=== PATIENT | male | born 1975 | race Caucasian/White ===

== ENCOUNTER 2017-02-11 15:41 | Emergency (ER) | payer OTHER ==
[2017-02-11] MEDS ORDERED: NS 500 ML IV ONE (15:52)
--- NOTE | 2017-02-11 15:52 | EDPHY ---
H & P Stated Complaint: hx afib/flutter/ thinks he has been in afib since yesterday HPI/ROS: HPI CHIEF COMPLAINT: "I think I am in AFib" HISTORY OF PRESENT ILLNESS: This patient is a 41-year-old male, significant past medical history AFib, not on any anticoagulation and has intermittent AFib. Presents emergency room stating that he thinks he is in AFib with palpitations and lightheadedness. He denies chest pain. He tells me that yesterday he jumped in the pool felt acute onset of AFib. With lightheadedness palpitations. Has persisted. He did take metoprolol 25 mg and Propafenone. However this did not give him any relief. Past Medical History: AFib Past Surgical History: No recent surgery Social History: Denies daily use drugs alcohol tobacco products Family History: Noncontributory ROS REVIEW OF SYSTEMS: A comprehensive 10 point review of systems is otherwise negative aside from elements mentioned in the history of present illness. Exam Constitutional appears well nontoxic triage nursing summary reviewed, vital signs reviewed, awake/alert. Eyes normal conjunctivae and sclera, EOMI, PERRLA. HENT normal inspection, atraumatic, moist mucus membranes, no epistaxis, neck supple/ no meningismus, no raccoon eyes. Respiratory clear to auscultation bilaterally, normal breath sounds, no respiratory distress, no wheezing. Cardiovascular irregular, irregular rhythm, no murmur, no edema, distal pulses normal. Gastrointestinal soft, non-tender, no rebound, no guarding, normal bowel sounds, no distension, no pulsatile mass. Genitourinary no CVA tenderness. Musculoskeletal no midline vertebral tenderness, full range of motion, no calf swelling, no tenderness of extremities, no meningismus, good pulses, neurovascularly intact. Skin pink, warm, & dry, no rash, skin atraumatic. Neurologic awake, alert and oriented x 3, AAOx3, moves all 4 extremities equally, motor intact, sensory intact, CN II-XII intact, normal cerebellar, normal vision, normal speech. Psychiatric normal mood/affect. Heme/Lymph/Immune no lymphadenopathy. Differential Diagnosis: Includes but is not limited to in a particular order, AFib, a flutter, other cardiac arrhythmia, electrolyte disturbance Medical Decision Making: Plan for this patient IV establishment full night monitor, EKG, blood work, chest x-ray. Will consult Cardiology Re-evaluation: 1618: This time I did speak with Dr. Bhupinder Valdez with Cardiology [facility]. Recommends Eliquis 5 mg twice daily and 25 mg metoprolol twice daily. NPO at midnight. Plan for JULIA cardioversion tomorrow. He would like him to be NPO at midnight. Plan for patient comfort admitting for JULIA cardioversion tomorrow. I have discussed this with the patient. He is fine with this plan. He is agreeable for discharge. Eliquis 1st dose given here in the emergency room as well as metoprolol 25 mg. Does understand if he develops chest pain shortness of breath or very very fast heart rate or has a syncopal episode he needs return emergency room. Otherwise follow up with [facility] tomorrow. ED x-ray chest one view: Negative for acute cardiopulmonary disease. EKG interpretation by me on record in [email or web address] system. Impression time of EKG 1556, atrial fib rate of 105. Otherwise I do not appreciate acute ischemia. Troponin is negative. Patient's viral follow-up care plan. Understands return emergency room if there is any worsening symptoms questions concerns. He is hemodynamically stable. Heart rate stable. Blood pressure stable. Source: Patient - Personal History Current Tetanus/Diphtheria Vaccine: Yes - Medical/Surgical History Hx Asthma: No Hx Chronic Respiratory Disease: No Hx Diabetes: No Hx Cardiac Disease: Yes Hx Renal Disease: No Hx Cirrhosis: No Hx Alcoholism: No Hx HIV/AIDS: No Hx Splenectomy or Spleen Trauma: No Other PMH: medical atrial flutter/fibrillation with ablation. surgery Ablation - Social History Smoking Status: Never smoked Constitutional: Initial Vital Signs Temperature (C) 36.5 C 02/11/17 15:43 Heart Rate 94 02/11/17 15:43 Respiratory Rate 18 02/11/17 15:43 Blood Pressure 95/76 L 02/11/17 15:43 O2 Sat (%) 98 02/11/17 15:43 O2 Delivery Mode Room Air Allergies/Adverse Reactions: No Known Allergies Allergy (Verified 02/11/17 15:42) Home Medications: Medication Instructions Recorded Apixaban [Eliquis] 5 mg PO BID #60 tab 02/11/17 Aspirin 81mg (*) 02/11/17 Metoprolol Succinate 02/11/17 Metoprolol Tartrate [Lopressor 25 25 mg PO BID #60 tab 02/11/17 mg (*)] Medical Decision Making - Diagnostics Imaging Results: Imaging Impressions Chest X-Ray 02/11/17 15:52 Impression: 1. No acute pulmonary disease. 2. Consider chest two views when the patient's medical condition permits. - Data Points Laboratory Results: Laboratory Results 02/11/17 16:00 02/11/17 16:00 02/11/17 02/11/17 02/11/17 16:00 16:00 16:00 WBC 7.49 10^3/uL 10^3/uL (3.80-9.50) RBC 5.77 10^6/uL 10^6/uL (4.40-6.38) Hgb 18.4 g/dL H g/dL (13.7-17.5) Hct 53.4 % H % (40.0-51.0) MCV 92.5 fL fL (81.5-99.8) MCH 31.9 pg pg (27.9-34.1) MCHC 34.5 g/dL g/dL (32.4-36.7) RDW 12.9 % % (11.5-15.2) Plt Count 256 10^3/uL 10^3/uL (150-400) MPV 10.8 fL fL (8.7-11.7) Neut % (Auto) 56.9 % % (39.3-74.2) Lymph % (Auto) 32.7 % % (15.0-45.0) [place] % (Auto) 8.4 % % (4.5-13.0) Eos % (Auto) 1.2 % % (0.6-7.6) Baso % (Auto) 0.5 % % (0.3-1.7) Nucleat RBC Rel Count 0.0 % % (0.0-0.2) Absolute Neuts (auto) 4.26 10^3/uL 10^3/uL (1.70-6.50) Absolute Lymphs (auto) 2.45 10^3/uL 10^3/uL (1.00-3.00) Absolute Monos (auto) 0.63 10^3/uL 10^3/uL (0.30-0.80) Absolute Eos (auto) 0.09 10^3/uL 10^3/uL (0.03-0.40) Absolute Basos (auto) 0.04 10^3/uL 10^3/uL (0.02-0.10) Absolute Nucleated RBC 0.00 10^3/uL 10^3/uL (0-0.01) Immature Gran % 0.3 % % (0.0-1.1) Immature Gran # 0.02 10^3/uL 10^3/uL (0.00-0.10) PT 14.2 SEC SEC (12.0-15.0) INR 1.11 (0.83-1.16) APTT 27.5 SEC SEC (23.0-38.0) Sodium 140 mEq/L mEq/L (134-144) Potassium 4.2 mEq/L mEq/L (3.5-5.2) Chloride 104 mEq/L mEq/L (97-110) Carbon Dioxide 21 mEq/l L mEq/l (22-31) Anion Gap 15 mEq/L mEq/L (8-16) BUN 13 mg/dL mg/dL (7-23) Creatinine 1.0 mg/dL mg/dL (0.7-1.3) Estimated GFR > 60 Glucose 70 mg/dL mg/dL (70-100) Calcium 10.1 mg/dL mg/dL (8.5-10.4) Magnesium 2.5 mg/dL H mg/dL (1.6-2.3) Total Bilirubin 2.4 mg/dL H mg/dL (0.1-1.4) Conjugated Bilirubin 0.3 mg/dL mg/dL (0.0-0.5) Unconjugated Bilirubin 2.1 mg/dL H mg/dL (0.0-1.1) AST 34 IU/L IU/L (17-59) ALT 43 IU/L IU/L (21-72) Alkaline Phosphatase 90 IU/L IU/L (38-126) Creatine Kinase 92 IU/L IU/L (0-224) CK-MB (CK-2) Fraction 0.65 ng/mL ng/mL (0-3.19) Troponin I < 0.012 ng/mL ng/mL (0-0.034) NT-Pro-B Natriuret Pep 698 pg/mL H pg/mL (0-125) Total Protein 8.3 g/dL H g/dL (6.3-8.2) Albumin 4.9 g/dL g/dL (3.5-5.0) Lipase 51.0 IU/L IU/L (23-300) Medications Given: Discontinued Medications Sodium Chloride (Ns) 500 mls @ 1,000 mls/hr IV ONCE ONE PRN Reason: Protocol Stop: 02/11/17 16:21 Last Admin: 02/11/17 16:00 Dose: 500 mls Metoprolol Tartrate (Lopressor) 25 mg PO EDNOW ONE Stop: 02/11/17 16:19 Last Admin: 02/11/17 16:25 Dose: 25 mg Departure - Departure Disposition: Home, Routine, Self-Care Clinical Impression: Atrial fibrillation Qualifiers: Atrial fibrillation type: unspecified Qualified Code(s): I48.91 - Unspecified atrial fibrillation Condition: Good Instructions: A-fib (Atrial Fibrillation) (ED) Additional Instructions: 1.You follow up with [facility] tomorrow. 2. You should have a appointment scheduled here at the hospital for a possible cardioversion. 3. Dr. Bhupinder Valdez should be calling you for this appointment. 4. Please do not eat anything after midnight. 5. Take your Eliquis twice a day and your metoprolol twice a day. Prescriptions: Apixaban [Eliquis] 5 mg PO BID #60 tab Metoprolol Tartrate [Lopressor 25 mg (*)] 25 mg PO BID #60 tab
--- NOTE | 2017-02-11 15:58 | CPEKG ---
Heart Rate: 105 RR Interval: 571 QRSD Interval: 92 QT Interval: 352 QTC Interval: 466 QRS [place]: -22 T Wave [place]: 40 EKG Severity - ABNORMAL ECG - EKG Impression: ATRIAL FLUTTER, A-RATE 254 EKG Impression: BORDERLINE LEFT AXIS DEVIATION Electronically Signed By: Isidro Jansen 11-Feb-2017 23:18:32
[2017-02-11 16:06] LABS: % IMMATURE GRANULYOCYTES 0.3 % (0.0-1.1); ABSOLUTE IMMATURE GRANULOCYTES 0.02 10^3/uL (0.00-0.10); ADD DIFF? NO; ADD MORPH? NO; ADD SCAN? NO; ATYPICAL LYMPHOCYTE FLAG 10 (0-99); FRAGMENT RBC FLAG 0 (0-99); HEMATOCRIT 53.4 % (40.0-51.0); HEMOGLOBIN 18.4 g/dL (13.7-17.5); LEFT SHIFT FLG 0 (0-99); LIPEMIA HEMOLYSIS FLAG 90 (0-99); MEAN CELL HEMOGLOBIN 31.9 pg (27.9-34.1); MEAN CELL HEMOGLOBIN CONCENTR. 34.5 g/dL (32.4-36.7); MEAN CELL VOLUME 92.5 fL (81.5-99.8); MEAN PLATELET VOLUME 10.8 fL (8.7-11.7); PLATELET CLUMPS FLAG 0 (0-99); PLATELET COUNT 256 10^3/uL (150-400); RED BLOOD CELL COUNT 5.77 10^6/uL (4.40-6.38); RED CELL DISTRIBUTION WIDTH 12.9 % (11.5-15.2)
[2017-02-11 16:16] LABS: INR 1.11 (0.83-1.16); PROTIME(PATIENT) 14.2 SEC (12.0-15.0)
[2017-02-11 16:17] LABS: APTT 27.5 SEC (23.0-38.0)
[2017-02-11] MEDS ORDERED: METOPROLOL TARTRATE 25 MG TAB PO ONE (16:18)
[2017-02-11 16:21] LABS: ALANINE AMINOTRANSFERASE 43 IU/L (21-72); ALBUMIN 4.9 g/dL (3.5-5.0); ALKALINE PHOSPHATASE 90 IU/L (38-126); ANION GAP 15 mEq/L (8-16); ASPARTATE AMINOTRANSFERASE 34 IU/L (17-59); BILIRUBIN,TOTAL 2.4 mg/dL (0.1-1.4); BILIRUBIN-CONJUGATED 0.3 mg/dL (0.0-0.5); BILIRUBIN-UNCONJUGATED 2.1 mg/dL (0.0-1.1); CALCIUM 10.1 mg/dL (8.5-10.4); CARBON DIOXIDE 21 mEq/l (22-31); CHLORIDE 104 mEq/L (97-110); GLOMERULAR FILTRATION RATE > 60; GLUCOSE 70 mg/dL (70-100); MAGNESIUM 2.5 mg/dL (1.6-2.3); POTASSIUM 4.2 mEq/L (3.5-5.2); SODIUM 140 mEq/L (134-144); TOTAL PROTEIN 8.3 g/dL (6.3-8.2)
[2017-02-11 16:28] VITALS: RESP 14
[2017-02-11] MEDS ORDERED: APIXABAN 5 MG TAB PO ONE (16:30)
[2017-02-11 16:33] LABS: CREATINE KINASE-MB FRACTION 0.65 ng/mL (0-3.19); TROPONIN I < 0.012 ng/mL (0-0.034)
[2017-02-11 17:01] VITALS: BP 108/70; PULSE 86; TEMP 98.4; O2SAT 97
== END 2017-02-11 17:03 | disposition home or self-care (01) ==
DX: I48.91 Unspecified atrial fibrillation (principal); Z79.01 Long term (current) use of anticoagulants; Z79.82 Long term (current) use of aspirin

== ENCOUNTER 2017-02-12 08:38 | Day surgery (SDC) | payer OTHER ==
[2017-02-12] MEDS ORDERED: PROPOFOL 200 MG/20 ML VIAL IVP ONE (08:47)
[2017-02-12] MEDS ORDERED: MIDAZOLAM 2 MG/2 ML VIAL IVP ONE (08:47)
[2017-02-12] MEDS ORDERED: fentaNYL 100 MCG/2 ML INJ IVP ONE (08:47)
[2017-02-12] MEDS ORDERED: NS 500 ML IV ONE (08:47)
--- NOTE | 2017-02-12 09:10 | CPEKG ---
Heart Rate: 64 RR Interval: 938 QRSD Interval: 92 QT Interval: 404 QTC Interval: 417 QRS [place]: 80 T Wave [place]: 53 EKG Severity - ABNORMAL ECG - EKG Impression: ATRIAL FIBRILLATION EKG Impression: ST ELEV, PROBABLE NORMAL EARLY REPOL PATTERN Electronically Signed By: Uriel Peñaloza 12-Feb-2017 10:52:01
[2017-02-12 09:40] LABS: ANION GAP 10 mEq/L (8-16); CALCIUM 9.3 mg/dL (8.5-10.4); CARBON DIOXIDE 24 mEq/l (22-31); CHLORIDE 102 mEq/L (97-110); GLOMERULAR FILTRATION RATE > 60; GLUCOSE 77 mg/dL (70-100); MAGNESIUM 2.3 mg/dL (1.6-2.3); POTASSIUM 4.5 mEq/L (3.5-5.2); SODIUM 136 mEq/L (134-144)
[2017-02-12 10:13] LABS: INR 1.24 (0.83-1.16); PROTIME(PATIENT) 15.6 SEC (12.0-15.0)
[2017-02-12 10:15] LABS: APTT 33.1 SEC (23.0-38.0)
--- NOTE | 2017-02-12 16:22 | CPIP ---
[f rep st] INVASIVE CARDIAC PROCEDURE PROCEDURE PERFORMED: Cardioversion and transesophageal echocardiogram. The patient gave informed consent for transesophageal echocardiogram and cardioversion. The patient was in atrial fibrillation. We went over the options and the possible risks of his procedure, and the patient elected to go with the procedure which was done without any problems. There were no complications. PROCEDURE: Transesophageal echocardiograph probe was passed without any complications. The procedure was done with Anesthesia present. This patient tolerated that very well. There was no contraindication to proceeding with cardioversi on. Left atrial appendage appeared excellent. No sign of thrombus or smoke. A bubble study was done an d the interatrial septum is intact. Next, the patient was cardioverted with 360 watt seconds from atrial fibrillation to normal sinus rh ythm. The patient woke up, was doing fine and all questions were answered. I did not get an opportunity to meet his partner who is with him. Followup has been arranged with Dr Quinn, and he would like to consider ablation. The patient was on approximately 18 hours of Eliquis at the time of the procedure, and the patient p romised to continue taking Eliquis for the next 6 weeks without any interruption. He is well aware of the risk of stroke and other complications. /[id number]/MODL
--- NOTE | 2017-02-15 08:04 | CPEKG ---
Heart Rate: 66 RR Interval: 909 P-R Interval: 176 QRSD Interval: 96 QT Interval: 400 QTC Interval: 420 P [place]: 57 QRS [place]: 69 T Wave [place]: 33 EKG Severity - NORMAL ECG - EKG Impression: SINUS RHYTHM Electronically Signed By: Uriel Peñaloza 15-Feb-2017 11:51:08
== END 2017-02-12 12:20 | disposition home or self-care (01) ==
LOC: FSGY 08:38 → FCATH 12:20
PROVIDERS: ATTEND Internal Medicine
DX: I48.91 Unspecified atrial fibrillation (principal)